=== PATIENT | male | born 1970 | race Asian ===

== ENCOUNTER 2019-03-16 02:47 | Emergency (ER) | payer SELFPAY ==
[~2019-03-16] VITALS: Ht 182.9 cm; Wt 72.7 kg
[2019-03-16 02:56] VITALS: BP 173/116
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
== END 2019-03-16 04:33 | disposition home or self-care (01) ==
LOC: ED 04:20
DX: S00.83XA Contusion of other part of head, initial encounter (principal); Y04.0XXA Assault by unarmed brawl or fight, initial encounter; Y93.89 Activity, other specified; Y92.89 Other specified places as the place of occurrence of the external cause; Y99.8 Other external cause status
CPT/HCPCS: 99283